=== PATIENT | female | born 2005 | race Caucasian/White ===

== ENCOUNTER 2024-11-17 05:39 | Emergency (ER) | payer BC ==
[~2024-11-17] VITALS: Ht 162.6 cm; Wt 59.0 kg
[2024-11-17 05:59] VITALS: O2SAT 99
[2024-11-17] MEDS: MAGNESIUM/ALUMINUM HYDROXIDE/SIMETHICONE 30ML UDC PO STA (06:40)
[2024-11-17] MEDS: ONDANSETRON 4MG ODT PO STA (06:40)
[2024-11-17 06:52] LABS: BASOPHILS % 0.2 % (0.0-2.0); EOSINOPHILS % 0.8 % (0.0-5.0); HEMATOCRIT. 39.5 % (36.0-48.0); HEMOGLOBIN. 13.4 g/dL (12.0-16.0); LYMPHOCYTES % 31.9 % (20.0-50.0); MEAN PLATELET VOLUME 9.6 fl (7.4-10.4); MONOCYTES % 11.0 % (2.0-8.0); NEUTROPHILS % 56.1 % (40.0-76.0); PLATELET 183 x1000/uL (130-400); RED BLOOD CELL COUNT 4.47 mill/uL (4.2-5.4); RED CELL DISTRIBUTION WIDTH 12.2 % (11.6-14.6)
[2024-11-17 07:00] LABS: CLARITY URINE CLEAR (CLEAR); COLOR URINE YELLOW (YELLOW); GLUCOSE URINE NEGATIVE (NEGATIVE); PH URINE 5.5 (4.5-8.0); PROTEIN URINE NEGATIVE (NEGATIVE); SPECIFIC GRAVITY URINE 1.017 (1.005-1.030)
[2024-11-17 07:01] LABS: KETONES URINE NEGATIVE (NEGATIVE); LEUKOCYTE ESTERASE URINE NEGATIVE (NEGATIVE); NITRITE URINE NEGATIVE (NEGATIVE); OCCULT BLOOD URINE NEGATIVE (NEGATIVE); UROBILINOGEN URINE 0.2 E.U./dL (0.2-1.0)
[2024-11-17 07:03] LABS: HCG SCREEN NEGATIVE
[2024-11-17] MEDS: DICYCLOMINE 10 MG/5 ML ORAL SYR PO STA (07:03)
[2024-11-17 07:13] LABS: CREATININE 0.9 mg/dL (0.6-1.0); UREA NITROGEN BLOOD 11 mg/dL (9-23)
[2024-11-17 07:15] LABS: ASPARTATE AMINOTRANSFERASE 17 IU/L (<34); BILIRUBIN DIRECT 0.2 mg/dL (<=3.0)
[2024-11-17 07:16] LABS: BILIRUBIN TOTAL 0.7 mg/dL (0.1-1.0); PROTEIN TOTAL 7.4 g/dL (6.0-8.3)
[2024-11-17 08:28] VITALS: BP 123/71; PULSE 104; RESP 13; TEMP 36.7; O2SAT 100
[2024-11-17] MEDS ORDERED: TOPUD PO (09:17)
[2024-11-17] MEDS ORDERED: ONDA4TAB50 PO (09:17)
[2024-11-17] MEDS: SODIUM CHLORIDE 0.9% 1,000 ML IV ONE (09:38)
[2024-11-17] MEDS: KETOROLAC 15MG/ML VIAL IV ONE (09:38)
[2024-11-17] MEDS: ONDANSETRON HCL 4MG/2ML INJ IV ONE (09:39)
== END 2024-11-17 09:40 | disposition home or self-care (01) ==
LOC: ER 05:39 → CANBEDREQ 09:30 → ER 09:40
DX: R10.9 Unspecified abdominal pain (principal); R19.7 Diarrhea, unspecified; M54.50 Low back pain, unspecified; Z88.1 Allergy status to other antibiotic agents; Z88.2 Allergy status to sulfonamides; Z79.899 Other long term (current) drug therapy
CPT/HCPCS: 99284; 74176; 80076; 80048; 81003; 84703; 83690; 85025; 36415; Q0162; J7030